=== PATIENT | female | born 1995 | race Hispanic/Latino ===

== ENCOUNTER 2024-06-11 18:40 | Day surgery (SDC) | payer OTHER ==
[2024-06-11 19:43] VITALS: BMI 33.9
[2024-06-11] MEDS ORDERED: hydrALAZINE 20 MG/ML VIAL SLOW IVP PRN (19:46)
[2024-06-11 20:06] LABS: Bilirubin Neg (Negative); Blood, Urine 250 (Negative); Clarity Cloudy (Clear); Glucose, Urine (Dipstick) Normal (Negative); Ketone, Urine Negative (Negative); Leukocyte 25 (Negative); Nitrite Negative (Negative); Protein, Urine (Dipstick) 30 mg/dl (Neg-Trace); Urobilinogen Normal mg/dL (Less than 2)
[2024-06-11 20:16] LABS: Bacteria/HPF 1+ HPF (None Seen); CAUTI Indications for Culture Pregnancy; RBC/HPF Greater than 50 HPF (0-3)
[2024-06-11 20:18] LABS: Urine Culture Reflex Yes Yes
== END 2024-06-11 20:55 | disposition home or self-care (01) ==
LOC: CSHLD/OP 18:40
PROVIDERS: ATTEND Obstetrics & Gynecology
DX: O46.93 Antepartum hemorrhage, unspecified, third trimester (principal); O24.410 Gestational diabetes mellitus in pregnancy, diet controlled; O47.03 False labor before 37 completed weeks of gestation, third trimester; O99.613 Diseases of the digestive system complicating pregnancy, third trimester; K21.9 Gastro-esophageal reflux disease without esophagitis; O23.43 Unspecified infection of urinary tract in pregnancy, third trimester; Z79.899 Other long term (current) drug therapy; Z98.890 Other specified postprocedural states; Z3A.33 33 weeks gestation of pregnancy
CPT/HCPCS: 76815; 81001; 87077; 87086; 99283

== ENCOUNTER 2024-07-14 15:28 | Day surgery (SDC) | payer OTHER ==
[2024-07-14 16:35] VITALS: BMI 36.1
== END 2024-07-14 17:36 | disposition home or self-care (01) ==
LOC: CSHLD/OP 15:28
PROVIDERS: ATTEND Obstetrics & Gynecology
DX: O99.891 Other specified diseases and conditions complicating pregnancy (principal); R03.0 Elevated blood-pressure reading, without diagnosis of hypertension; Z36.89 Encounter for other specified antenatal screening; Z3A.00 Weeks of gestation of pregnancy not specified
CPT/HCPCS: 99282

== ENCOUNTER 2024-07-15 10:18 | Inpatient (IN) | payer OTHER ==
[2024-07-15 10:45] LABS: Fetal Membranes Rupture RUPTURE DETECTED (No Rupture)
[2024-07-15 10:46] VITALS: BMI 35.9
[2024-07-15] MEDS ORDERED: Ondansetron PF 4 MG/2 ML Vial IVP PRN ×4 (12:05→18:54)
[2024-07-15] MEDS ORDERED: Bicitra 30 ML UDCUP PO PRN (12:05)
[2024-07-15] MEDS ORDERED: fentaNYL 50 mcg/mL 1 mL Vial SLOW IVP PRN ×2 (12:05→16:10)
[2024-07-15] MEDS ORDERED: Promethazine HCl 25 MG/ML VIAL IM PRN ×2 (12:05→16:10)
[2024-07-15] MEDS ORDERED: hydrALAZINE 20 MG/ML VIAL SLOW IVP PRN ×2 (12:05→18:54)
[2024-07-15] MEDS ORDERED: CEFAZOLIN 2 GM in Sodium Chloride 0.9% 100 ML IVPB SCH (12:15)
[2024-07-15] MEDS ORDERED: Oxytocin 30 units/NS 500 ML 500 ML IV SCH ×2 (12:15→18:54)
[2024-07-15] MEDS ORDERED: Azithromycin 500 MG in Sodium Chloride 0.9% 250 ML 250 ML IVPB SCH (12:15)
[2024-07-15] MEDS: Lactated Ringer's 1,000 ML IV SCH (12:30)
[2024-07-15 12:50] LABS: Hematocrit 35.9 % (34.9-44.5); Hemoglobin 11.8 g/dL (12.0-15.5); Mean Corpuscular HGB CONC 32.9 g/dL (32.0-36.0); Mean Corpuscular Hemoglobin 29.6 pg (27.0-33.0); Mean Platelet Volume 10.2 fL (7.4-10.4); Platelet Count 299 10x3/uL (150-450); RBC Distribution Width 12.8 % (11.5-14.5); Red Blood Cell (RBC) Count 3.99 10x6/uL (3.90-5.03)
[2024-07-15 13:23] LABS: Syphilis Antibody Nonreactive (Nonreactive); Syphilis Antibody Index 0.04 S/CO (<1.00 Non-Reactive)
[2024-07-15 13:24] LABS: Hep B Surf Ag - L&D Non-Reactive S/CO (NonReactive)
[2024-07-15] MEDS: Famotidine/PF 20 mg/2ml Vial SLOW IVP PRN (13:27)
[2024-07-15] MEDS ORDERED: Naloxone HCl 0.4 mg/ml Vial IVP PRN ×2 (16:10)
[2024-07-15] MEDS ORDERED: Naloxone HCl 0.4 mg/ml Vial IV PRN (16:10)
[2024-07-15] MEDS ORDERED: Meperidine HCl/PF 25 MG (1 mL) VIAL SLOW IVP PRN (16:10)
[2024-07-15] MEDS ORDERED: diphenhydrAMINE 50 MG/ML VIAL IVP PRN (16:10)
[2024-07-15] MEDS ORDERED: Moisturizing Cream (Eucerin) 113 GM JAR TOP PRN (16:10)
[2024-07-15] MEDS ORDERED: Communication Order-Pharmacy FS SCH (16:15)
[2024-07-15] MEDS ORDERED: Lanolin Ointment 7 GM TUBE TOP PRN (18:54)
[2024-07-15] MEDS ORDERED: diphenhydrAMINE 25 MG CAP PO PRN (18:54)
[2024-07-15] MEDS ORDERED: HYDROcodone/Acetaminophen 5/325 mg Tablet PO PRN (18:54)
[2024-07-15] MEDS ORDERED: Bisacodyl 10 MG SUPP PR PRN (18:54)
[2024-07-15] MEDS ORDERED: Simethicone Chewable 80 MG TAB PO PRN (18:54)
[2024-07-15] MEDS: Ketorolac Tromethamine 30 MG (1 mL) VIAL ONE (19:02)
[2024-07-15] MEDS: Morphine PF 10 MG/10 ML VIAL ONE (19:02)
[2024-07-15] MEDS: Dexmedetomidine 200 MCG/2 ML VIAL ONE (19:02)
[2024-07-15] MEDS: Ondansetron PF 4 MG/2 ML Vial ONE (19:02)
[2024-07-15] MEDS: Phenylephrine 10 MG/ML VIAL ONE (19:02)
[2024-07-15] MEDS: Dexamethasone 10 MG/ML VIAL ONE (19:02)
[2024-07-15] MEDS: Sterile Water 10 ML ONE (19:02)
[2024-07-15] MEDS: Phytonadione Neonatal 1 MG/0.5 ML AMP ONE (19:03)
[2024-07-15] MEDS: Hepatitis B Vaccine 10 MCG/0.5 ML SYR ONE (19:03)
[2024-07-15] MEDS: Oxytocin 10 UNITS/ML VIAL ONE (19:03)
[2024-07-15] MEDS: Erythromycin Base 0.5% Oint 1 GM TUBE ONE (19:03)
[2024-07-15] MEDS: Misoprostol 200 MCG TAB PR SCH (19:13)
[2024-07-15] MEDS: Tranexamic Acid 1,000 MG in Sodium Chloride 0.9% 100 ML IVPB SCH (19:13)
[2024-07-15] MEDS: Boostrix 0.5 ML (Tdap) VIAL (>/=7 yrs of age) IM ONE (20:03)
[2024-07-15] MEDS: Ferrous Sulfate 325 MG TAB PO SCH (20:04)
[2024-07-15] MEDS: Docusate 100 MG CAP PO SCH (21:06)
[2024-07-15] MEDS: Ketorolac Tromethamine 30 MG (1 mL) VIAL IVP SCH (21:16)
[2024-07-16 03:52] LABS: Hematocrit 27.5 % (34.9-44.5); Hemoglobin 9.4 g/dL (12.0-15.5); Mean Corpuscular HGB CONC 34.2 g/dL (32.0-36.0); Mean Corpuscular Hemoglobin 30.2 pg (27.0-33.0); Mean Corpuscular Volume 88.4 fL (81.6-98.3); Mean Platelet Volume 10.3 fL (7.4-10.4); Platelet Count 264 10x3/uL (150-450); RBC Distribution Width 12.7 % (11.5-14.5); Red Blood Cell (RBC) Count 3.11 10x6/uL (3.90-5.03); White Blood Cell (WBC) Count 18.77 10x3/uL (3.5-10.5)
[2024-07-16] MEDS: HYDROcodone/Acetaminophen 5/325 mg Tablet PO PRN (09:16)
[2024-07-16] MEDS: Prenatal Vitamin 1 TAB PO SCH (09:16)
[2024-07-16] MEDS: Ibuprofen 800 MG TAB PO SCH (21:13)
[2024-07-17 05:53] VITALS: BP 116/60; TEMP 98
== END 2024-07-17 18:30 | disposition home or self-care (01) | DRG 788 ==
LOC: CSHLD/OP 10:18 → CSHLD 12:36 → CSHPED 18:30
PROVIDERS: ADMIT Obstetrics & Gynecology; ATTEND Obstetrics & Gynecology
PROC: 10D00Z1 Extraction of Products of Conception, Low, Open Approach (ICD-10-PCS; principal; 2024-07-15)
DX: O64.0XX0 Obstructed labor due to incomplete rotation of fetal head, not applicable or unspecified (principal); O42.92 Full-term premature rupture of membranes, unspecified as to length of time between rupture and onset of labor; O69.81X0 Labor and delivery complicated by cord around neck, without compression, not applicable or unspecified; O24.429 Gestational diabetes mellitus in childbirth, unspecified control; Z37.0 Single live birth; Z79.899 Other long term (current) drug therapy; Z79.84 Long term (current) use of oral hypoglycemic drugs; Z3A.38 38 weeks gestation of pregnancy
CPT/HCPCS: 36415; 51702; 84112; 85027; 86780; 86850; 86870; 86900; 86901; 86905; 86922; 87340; 99285; J1100; J1885; J2274; J2371; J2405; J2590; J3490; J7120